=== PATIENT | female | born 1995 | race Asian ===

== ENCOUNTER 2016-05-05 18:55 | Emergency (ER) | payer MEDICAID ==
[~2016-05-05] VITALS: Ht 154.9 cm; Wt 55.3 kg
[2016-05-05 19:30] VITALS: BP_SYST 158
--- NOTE | 2016-05-05 19:41 | NUR ---
Pt ambulatory, a/o x 4, c/o generalized rashes with itching and burning pain x 3 1/2 weeks. Pt reported that burning pain is worse at night with 10/10 PS. Pt c/o 6/10 PS at this time, +raised small rashes spreading all over her body. Pt has not taken any medicine nor applied anti itch lotion. Pt with normal resp effort, no sob, lungs CTA. Pt denied use of new lotion, soap, body wash, denied eating new food.
--- NOTE | 2016-05-05 19:41 | NUR ---
Patient to [facility] for evaluation. Side rails up. Report given to VINITA Sullivan.
--- NOTE | 2016-05-05 19:48 | NUR ---
Pt moved to bed 7
--- NOTE | 2016-05-05 19:58 | NUR ---
BASSEM Mauricio at bedside examining patient.
[2016-05-05] MEDS ORDERED: FAMOTIDINE 20 MG TABLET PO ONE (20:30)
[2016-05-05] MEDS ORDERED: methylPREDNISolone SOD SUCC/PF 62.5 MG/ML VIAL IM ONE (20:30)
[2016-05-05 21:05] VITALS: BP_SYST 123
--- NOTE | 2016-05-05 21:05 | NUR ---
Patient given written and verbal discharge instructions and verbalizes understanding. ER [employer] [employer] discussed with patient the results and treatment provided. Patient in stable condition. ID arm band removed. Rx of EPI PEN, PREDNISONE, LORATADINE, PEPCID, BENADRYL given. Patient educated on pain management and to follow up with PMD. Pain Scale 0/10. Opportunity for questions provided and answered.
== END 2016-05-05 21:05 | disposition home or self-care (01) ==
LOC: SED 18:55
DX: R21 Rash and other nonspecific skin eruption (principal); L29.9 Pruritus, unspecified
CPT/HCPCS: 81025; 96372; 99283; J2930

== ENCOUNTER 2016-05-21 09:52 | Emergency (ER) | payer MEDICAID ==
[~2016-05-21] VITALS: Ht 154.9 cm; Wt 55.8 kg
[2016-05-21 09:57] VITALS: BP_SYST 113
[2016-05-21 10:18] VITALS: BP_SYST 116
== END 2016-05-21 10:18 | disposition home or self-care (01) ==
LOC: SED 09:52
DX: L29.9 Pruritus, unspecified (principal)
CPT/HCPCS: 99281

== ENCOUNTER 2017-05-06 13:22 | Emergency (ER) | payer MEDICAID ==
[~2017-05-06] VITALS: Ht 154.9 cm; Wt 57.2 kg
[2017-05-06 13:28] VITALS: BP_SYST 127
[2017-05-06 14:40] VITALS: BP_SYST 127
== END 2017-05-06 14:40 | disposition home or self-care (01) ==
LOC: SED 13:22
DX: H66.92 Otitis media, unspecified, left ear (principal); J06.9 Acute upper respiratory infection, unspecified
CPT/HCPCS: 99283

== ENCOUNTER 2017-08-10 17:06 | Emergency (ER) | payer MEDICAID ==
[~2017-08-10] VITALS: Ht 154.9 cm; Wt 53.5 kg
[2017-08-10 17:26] VITALS: BP_SYST 147
== END 2017-08-10 17:55 | disposition home or self-care (01) ==
LOC: SED 17:06
DX: Z00.00 Encounter for general adult medical examination without abnormal findings (principal); R03.0 Elevated blood-pressure reading, without diagnosis of hypertension
CPT/HCPCS: 99281

== ENCOUNTER 2019-07-15 02:22 | Emergency (ER) | payer MEDICAID ==
[~2019-07-15] VITALS: Ht 152.4 cm; Wt 62.1 kg
[2019-07-15 02:55] VITALS: BP_SYST 132
--- NOTE | 2019-07-15 02:55 | NUR ---
Patient to ER bed 7 to gown for evaluation. Side rails up.
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
--- NOTE | 2019-07-15 03:26 | NUR ---
Dr. Chávez bedside for Pt eval
--- NOTE | 2019-07-15 04:10 | NUR ---
Pt taken to Radiology in stable condition
[2019-07-15] MEDS ORDERED: MORPHINE 4 MG/ML INJ. SYRINGE IM ONE (04:30)
--- NOTE | 2019-07-15 05:18 | NUR ---
VSS no s/s of acute distress Resting on gurney rails up
[2019-07-15 06:00] VITALS: BP_SYST 132
--- NOTE | 2019-07-15 06:00 | NUR ---
Patient given written and verbal discharge instructions and verbalizes understanding. ER MD discussed with patient the results and treatment provided. Patient in stable condition. ID arm band removed. Rx of [place] and Ibuprofen given. Patient educated on pain management and to follow up with PMD. Pain Scale 0/10 Opportunity for questions provided and answered. Medication side effect fact sheet provided.
== END 2019-07-15 06:00 | disposition home or self-care (01) ==
LOC: SED 02:22
DX: S09.90XA Unspecified injury of head, initial encounter (principal); Y08.89XA Assault by other specified means, initial encounter; Y93.01 Activity, walking, marching and hiking; Y92.89 Other specified places as the place of occurrence of the external cause; Y99.8 Other external cause status
CPT/HCPCS: 70450; 70486; 72125; 81025; 96372; 99285; J2270